=== PATIENT | female | born 1980 | race Caucasian/White ===

== ENCOUNTER 2021-02-26 09:49 | Inpatient (IN) | payer BC ==
[2021-02-26] MEDS ORDERED: Norepinephrine 8 MG/0.9% NS 250 ML ONE ×2 (09:53→15:28)
[2021-02-26 10:10] LABS: Actual Bicarbonate (HCO3a) 10.3 mEq/L (22-28); Analyzer IN Cardio ER; Base Excess (BEa) -16.8 mEq/L (-2.0 to +3.0); CO2 Tension 28.9 mmHg (35.0-45.0); Calcium, Ionized (arterial) 1.24 mmol/L (1.12-1.30); Carboxyhemoglobin (COHb) 0.3 gm% (0.0-3.0); Hemoglobin (Hb) 10.9 g/dL (12.0-16.0); O2 Tension (PaO2), arterial 318.1 mmHg (80.0-100.0)
[2021-02-26] MEDS ORDERED: Iopamidol-370 76% 500 ML 1 ML ONE (10:10)
[2021-02-26 10:11] LABS: ALV-art Gradient 358.775 mmHg (0-20); Puncture Site RRA; pH, Arterial 7.17 (7.35-7.45)
[2021-02-26] MEDS ORDERED: Vancomycin 1 GM/200 ML BAG ONE (10:14)
[2021-02-26 10:33] LABS: ALT (SGPT) 12 U/L (8-55); AST (SGOT) 24 U/L (5-34); Albumin 3.4 g/dL (3.5-5.0); Alkaline Phosphatase 428 U/L (40-110); Anion Gap 24 mmol/L (10-20); BUN (Urea Nitrogen) 17 mg/dL (7.0-18.7); Bilirubin, Total 0.7 mg/dL (0.2-1.2); Calc. Creatinine Clearance 0 mL/min (70-130); Calcium 9.5 mg/dL (7.8-10.44); Carbon Dioxide 13 mmol/L (22-29); Chloride 98 mmol/L (98-107); Globulin 3.3 g/dL (2.4-3.5); Glucose 96 mg/dL (70-105); Potassium 4.7 mmol/L (3.5-5.1); Protein, Total 6.7 g/dL (6.0-8.3); Sodium 130 mmol/L (136-145)
[2021-02-26 10:44] LABS: Anisocytosis SLIGHT = 6-15 cells (100X) (0-5/hpf); Band 49 % (5-11); Hemoglobin 10.1 g/dL (12.0-16.0); Lymphocytes 14 % (21-51); MDiff Complete? YES; Mean Corpuscular HGB CONC 30.8 g/dL (32.0-36.0); Mean Corpuscular Hemoglobin 27.7 pg (27.0-31.0); Mean Platelet Volume 9.6 fL (7.4-10.4); Metamyelocyte 7 % (0-0); Monocytes 1 % (0-10); Neutrophil 28 % (42-75); Platelet Count 371 thou/uL (130-400); Poikilocytosis SLIGHT = 6-15 cells (100X) (0-5/hpf); RBC Distribution Width 20.7 % (11.5-14.5); Red Blood Cell (RBC) Count 3.65 mill/uL (4.20-5.40); Reflex for Review?? YES; White Blood Cell (WBC) Count 7.1 thou/uL (4.8-10.8)
[2021-02-26 10:53] LABS: CKMB 0.9 ng/mL (0-6.6)
[2021-02-26] MEDS ORDERED: Fentanyl 100 MCG/2 ML VIAL ONE ×2 (11:42→12:08)
[2021-02-26] MEDS ORDERED: MEROPENEM 1 GM/50 ML 1 GM in Premix Bag 1 BAG IVPB SCH ×2 (11:45→21:00)
[2021-02-26 12:01] LABS: SARS-CoV-2 NAA Rapid Test Not Detected (NotDetected)
[2021-02-26] MEDS ORDERED: HYDROmorphone 0.5 MG/0.5 ML SYRINGE ONE ×3 (12:40→15:48)
[2021-02-26] MEDS ORDERED: HYDROcodone/Acetaminophen 5/325 mg Tablet PO PRN (13:00)
[2021-02-26] MEDS ORDERED: Senokot S 8.6-50 MG TAB PO PRN (13:00)
[2021-02-26] MEDS ORDERED: Ondansetron PF 4 MG/2 ML Vial IVP PRN (13:00)
[2021-02-26] MEDS ORDERED: Acetaminophen 325 MG TAB PO PRN (13:00)
[2021-02-26] MEDS ORDERED: Sodium Chloride 0.9% 1,000 ML IV SCH (13:00)
[2021-02-26] MEDS ORDERED: Norepinephrine 8 MG/0.9% NS 250 ML IVPB PRN (13:03)
[2021-02-26] MEDS ORDERED: HYDROmorphone 0.5 MG/0.5 ML SYRINGE SLOW IVP PRN ×2 (13:04→17:24)
[2021-02-26] MEDS ORDERED: Lorazepam 2 MG/ML VIAL SLOW IVP PRN (13:05)
[2021-02-26 13:21] LABS: Lactic Acid 5.5 mmol/L (0.5-2.2)
[2021-02-26] MEDS ORDERED: Phenylephrine 40 MG/NS 250 ML 40 MG in Premix Bag 1 BAG IVPB SCH (15:45)
[2021-02-26 16:20] VITALS: BP 72/54
[2021-02-26 19:33] VITALS: TEMP 98.1
[2021-02-26] MEDS ORDERED: Vancomycin 1 GM in Premix Bag 1 BAG IVPB SCH (21:00)
== END 2021-02-26 21:05 | disposition expired | DRG 871 ==
LOC: EDBD 09:49 → ERS 09:49 → ERHOLD 13:08 → CCU 17:12
PROVIDERS: ADMIT Family Medicine; ATTEND Family Medicine
PROC: 3E043XZ Introduction of Vasopressor into Central Vein, Percutaneous Approach (ICD-10-PCS; principal; 2021-02-26)
DX: A41.9 Sepsis, unspecified organism (principal); R65.21 Severe sepsis with septic shock; J96.01 Acute respiratory failure with hypoxia; K63.1 Perforation of intestine (nontraumatic); K65.8 Other peritonitis; C25.9 Malignant neoplasm of pancreas, unspecified; E87.2 Acidosis; K56.699 Other intestinal obstruction unspecified as to partial versus complete obstruction; Z66 Do not resuscitate; Z51.5 Encounter for palliative care; Z20.822 Contact with and (suspected) exposure to COVID-19; I10 Essential (primary) hypertension; Z91.040 Latex allergy status; Z92.21 Personal history of antineoplastic chemotherapy
CPT/HCPCS: 0240U; 36416; 36600; 70450; 71045; 71275; 74177; 80053; 82553; 82805; 83605; 83880; 84484; 85025; 85060; 86850; 86900; 86901; 87040; 87076; 93005; 96365; 96366; 96368; 96375; 96376; 99292; J1170; J2185; J2997; J3010; J3370; Q9967